=== PATIENT | female | born 1955 | race Caucasian/White ===

== ENCOUNTER 2024-04-14 06:34 | Day surgery (SDC) | payer BC, SELFPAY | END 2024-04-14 15:39 | disposition home or self-care (01) | LOC: GI 06:34 | PROVIDERS: ATTENDING PHYSICIAN Internal Medicine Gastroenterology; FAMILY PHYSICIAN Family Medicine | DX: Z12.11 Encounter for screening for malignant neoplasm of colon (principal); K64.0 First degree hemorrhoids; Z80.0 Family history of malignant neoplasm of digestive organs | CPT/HCPCS: G0105 ==